=== PATIENT | male | born 1955 | race Two or more races ===

== ENCOUNTER 2018-01-15 15:16 | Emergency (ER) | payer OTHER ==
[~2018-01-15] VITALS: Ht 167.6 cm; Wt 99.8 kg
[2018-01-15] MEDS ORDERED: SODIUM BICARBONATE 8.4% INJ 50ML SYRINGE IV ONE (15:17)
[2018-01-15] MEDS ORDERED: EPINEPHrine HCL 1 MG/10 ML SYRG IV ONE (15:17)
[2018-01-15] MEDS ORDERED: CALCIUM CHLOR(10%) 100MG/ML 10ML SYRINGE IV ONE (15:17)
[2018-01-15] MEDS ORDERED: SODIUM BICARBONATE 8.4 % INJ 50ML VIAL IV ONE ×3 (15:30→16:30)
[2018-01-15 15:38] VITALS: BP 88/46
[2018-01-15] MEDS ORDERED: NOREPINEPHRINE 8 MG/250ML KIT 250 ML IV ONE (15:41)
[2018-01-15] MEDS ORDERED: DOPamine 1600MCG/ML D5W 250 ML IV ONE (15:45)
[2018-01-15] MEDS ORDERED: NOREPINEPHRINE 8 MG/250ML KIT 250 ML IV SCH (15:45)
[2018-01-15 16:05] LABS: Urine Bacteria FEW /hpf (None Seen); Urine Blood TRACE /uL (Negative); Urine Specific Gravity 1.014 (1.001-1.035); Urine WBC 47 /hpf (0 - 3)
[2018-01-15 16:09] VITALS: BP 86/46
[2018-01-15 16:12] LABS: INR 1.16 (0.9-1.15); Partial Thromboplastin Time 44.3 sec (22.64-33.71); Prothrombin Time 12.7 sec (9.37-12.3)
[2018-01-15] MEDS ORDERED: EPINEPHrine HCL 1 MG/10 ML SYRG ONE (16:14)
[2018-01-15] MEDS ORDERED: SODIUM BICARBONATE 8.4% INJ 50ML SYRINGE ONE ×2 (16:15→16:19)
[2018-01-15 16:16] LABS: Alcohol, Urine < 3.0 mg/dL (0-5); Amphetamine Screen, Urine NEGATIVE (NEGATIVE); Barbiturate Scree,Urine NEGATIVE (NEGATIVE); Benzodiazephine Screen, Urine NEGATIVE (NEGATIVE); Cannabinoid Screen, Urine NEGATIVE (NEGATIVE); Cocaine Screen, Urine NEGATIVE (NEGATIVE); Opiate Scree,Urine NEGATIVE (NEGATIVE); Phencyclidine Screen, Urine NEGATIVE (NEGATIVE)
[2018-01-15 16:33] LABS: Albumin 1.2 g/dL (3.4-5.0); Bilirubin, Total 0.5 mg/dL (0.2-1.0); Calcium 8.5 mg/dL (8.5-10.1); Magnesium 3.8 mg/dL (1.6-2.6); Total Protein 5.3 g/dL (6.4-8.2)
[2018-01-15 16:44] LABS: Mean Corpuscular Hemoglobin 28.7 pg (28.0-32.0); Mean Corpuscular Hgb Conc. 30.5 g/dL (32.0-36.0); Red Cell Distribution Width 16.7 % (11.8-14.3)
[2018-01-15] MEDS ORDERED: SODIUM CHLORIDE 0.9% 1,000 ML IV ONE (16:45)
[2018-01-15 16:47] LABS: Hemoglobin 7.6 g/dL (13.5-17.5); Mean Corpuscular Volume 94.2 fL (80.0-100.0); Platelet Count (auto) 284 10^3/uL (140-450); Red Blood Cells 2.66 10^6/uL (4.5-5.90)
[2018-01-15 17:06] LABS: Potassium 6.6 mmol/L (3.5-5.1)
[2018-01-15 17:07] LABS: BUN/Creatinine Ratio 37.7
[2018-01-15 17:08] LABS: White Blood Cell 52.8 10^3/uL (4.4-10.8)
[2018-01-15 17:15] LABS: Basophils % (manual) 0 (0.0-2.0); Blast Cells 0; Eosinophils % (manual) 0 (0-7); Promyelocytes % 0
[2018-01-15] MEDS ORDERED: DEXTROSE (50%) 50ML SYRG IV ONE ×2 (17:30→18:00)
[2018-01-15] MEDS ORDERED: ALBUMIN 25% 100 ML IV ONE (18:00)
[2018-01-15] MEDS ORDERED: PIPERACILLIN-TAZO 4.5GM 100 ML IV ONE (18:00)
[2018-01-15] MEDS ORDERED: InsuLIN REG 1unit/0.01ml Soln (100units/ml) IV ONE (18:00)
[2018-01-15 18:16] LABS: Band Neutrophils % (manual) 2; Lymphocytes % (manual) 3 (10.0-50.0)
[2018-01-15 18:17] LABS: Metamyelocytes % 14; Monocytes % (manual) 2 (0-12); Reactive Lymphocytes 1
[2018-01-15 18:18] LABS: Myelocytes % 7
[2018-01-15 18:46] VITALS: BP 83/44
[2018-01-15] MEDS ORDERED: DOBUTamine 1000MCG/ML 250 ML IV SCH (19:17)
[2018-01-15 20:38] VITALS: BP 98/45
[2018-01-15] MEDS ORDERED: MIDAZOLAM DRIP 50 mg/50mL 50 ML IV SCH (20:47)
[2018-01-15 22:05] VITALS: BP 90/37
[2018-01-15 23:22] VITALS: BP 83/43
== END 2018-01-16 06:04 | disposition expired ==
LOC: EDBD 15:16 → ER 15:16
DX: I46.9 Cardiac arrest, cause unspecified (principal); A41.9 Sepsis, unspecified organism; N39.0 Urinary tract infection, site not specified; E87.1 Hypo-osmolality and hyponatremia; E87.5 Hyperkalemia; E46 Unspecified protein-calorie malnutrition; D72.829 Elevated white blood cell count, unspecified; I12.9 Hypertensive chronic kidney disease with stage 1 through stage 4 chronic kidney disease, or unspecified chronic kidney disease; N18.4 Chronic kidney disease, stage 4 (severe)
CPT/HCPCS: 31500; 36415; 36600; 51702; 70450; 71045; 80053; 80307; 81001; 82805; 82962; 83605; 83735; 84484; 85007; 85027; 85060; 85610; 85730; 87040; 87077; 87147; 87186; 92950; 93005; 96361; 96365; 96368; 96375; 99291; J0171; J1250; J1815; J2250; J2543; J7030; J7042; P9047